=== PATIENT | female | born 1960 | race Hispanic/Latino ===

== ENCOUNTER 2018-03-22 23:40 | Observation (INO) | payer BC ==
--- NOTE | 2018-03-23 00:47 | ED PDOC ---
Arrival/HPI - General Chief Complaint: High Blood Pressure Time Seen by Provider: 03/23/18 00:18 Historian: Patient - History of Present Illness Narrative History of Present Illness (Text): 03/23/18 00:47 58 year old female, with past medical history of hypertension, presents to the Emergency department complaining of high blood pressure and chest pressure for past few days. Patient denies any blood pressure medication but informs taking her mother's prescribed lisinopril 20mg with mild improvement to symptoms. Patient informs associated 1 episode of vomiting today prompting her to present to the Emergency department for medical evaluation. Patient denies any fevers, chills, headache, dizziness, shortness of breath, dyspnea on exertion, cough, abdominal pain, nausea, diarrhea, back pain, neck pain, or any other complaints. Time/Duration: < week Symptom Onset: Gradual Symptom Course: Unchanged Quality: Pressure Activities at Onset: Light Context: Home Past Medical History - Provider Review Nursing Documentation Reviewed: Yes - Cardiac Hx Cardiac Disorders: Yes Hx Hypertension: Yes - Psychiatric Hx Substance Use: No - Surgical History Hx Section: Yes Family/Social History - Physician Review Nursing Documentation Reviewed: Yes Family/Social History: No Known Family HX Smoking Status: Never Smoked Hx Alcohol Use: Yes Frequency of alcohol use: Socially Hx Substance Use: No Allergies/Home Meds Allergies/Adverse Reactions: Allergies codeine Adverse Reaction (Verified 03/23/18 00:30) DIZZINESS Review of Systems - Physician Review All systems were reviewed & negative as marked: Yes - Review of Systems Constitutional: absent: Fevers Respiratory: absent: SOB, Cough Cardiovascular: Chest Pain. absent: DIOR Gastrointestinal: Vomiting. absent: Abdominal Pain, Diarrhea, Nausea Musculoskeletal: absent: Back Pain, Neck Pain Neurological: absent: Headache, Dizziness Physical Exam Vital Signs Reviewed: Yes Vital Signs Temp Pulse Resp BP Pulse Ox 03/23/18 03:14 76 18 152/93 H 96 03/23/18 00:26 98.2 F 85 18 158/88 H 99 Temperature: Afebrile Blood Pressure: Normal Pulse: Regular Respiratory Rate: Normal Appearance: Positive for: Well-Appearing, Non-Toxic, Comfortable Pain Distress: None Mental Status: Positive for: Alert and Oriented X 3 - Systems Exam Head: Present: Atraumatic, Normocephalic Pupils: Present: PERRL Extroacular Muscles: Present: EOMI Conjunctiva: Present: Normal Mouth: Present: Moist Mucous Membranes Neck: Present: Normal Range of Motion Respiratory/Chest: Present: Clear to Auscultation, Good Air Exchange. No: Respiratory Distress, Accessory Muscle Use Cardiovascular: Present: Regular Rate and Rhythm, Normal S1, S2. No: Murmurs Abdomen: No: Tenderness, Distention, Peritoneal Signs Back: Present: Normal Inspection Upper Extremity: Present: Normal Inspection. No: Cyanosis, Edema Lower Extremity: Present: Normal Inspection. No: Edema Neurological: Present: GCS=15, CN II-XII Intact, Speech Normal Skin: Present: Warm, Dry, Normal Color. No: Rashes Psychiatric: Present: Alert, Oriented x 3, Normal Insight, Normal Concentration Medical Decision Making ED Course and Treatment: 03/23/18 00:51 Impression: 58 year old female presents to the Emergency department complaining of chest pressure and high blood pressure. Plan: -- EKG -- Labs -- Chest X-ray -- Urinalysis -- Reassess and disposition Prior Visits: Notes and results from previous visits were reviewed. Progress Notes: 03/23/18 03:[address] Rockwell, who is aware and agrees with Emergency department management plan to admit patient to Telemetry for further observation. - Lab Interpretations Lab Results: 03/23/18 00:55 03/23/18 00:55 Lab Results 03/23/18 01:00: Urine Color Yellow, Urine Appearance Clear, Urine pH 6.5, Ur Specific [place] <= 1.005, Urine Protein Negative, Urine Glucose (UA) Negative, Urine Ketones Negative, Urine Blood Trace-lysed H, Urine Nitrate Negative, Urine Bilirubin Negative, Urine Urobilinogen 0.2, Ur Leukocyte Esterase Negative , Urine RBC 0 - 2, Urine WBC Negative, Ur Epithelial Cells 3 - 4, Urine Bacteria Occ 03/23/18 00:55: Sodium 144, Potassium 3.8, Chloride 106, Carbon Dioxide 24, Anion Gap 19, BUN 19, Creatinine 1.2, Est GFR ( Amer) 56, Est GFR (Non- Af Amer) 46, Random Glucose 121 H, Calcium 9.4, Magnesium 2.2, Total Bilirubin 1.6 H, AST 26, ALT 27, Alkaline Phosphatase 76, Lactate Dehydrogenase 511, Total Creatine Kinase 98, Troponin I < 0.01, Total Protein 8.1, Albumin 4.7, Globulin 3.3, Albumin/Globulin Ratio 1.4 03/23/18 00:55: PT 11.8, INR 1.03, APTT 33.1 03/23/18 00:55: WBC 10.3, RBC 4.37, Hgb 13.4, Hct 38.7, MCV 88.6, MCH 30.7, MCHC 34.6, RDW 13.6, Plt Count 240, MPV 9.9, Gran % 86.6 H, Lymph % (Auto) 10.2 L, Rook[place] % (Auto) 2.8, Eos % (Auto) 0.3 L, Baso % (Auto) 0.1, Gran # 8.94 H, Lymph # (Auto) 1.1 L, [place] # (Auto) 0.3, Eos # (Auto) 0.0, Baso # (Auto) 0.01 - RAD Interpretation Radiology Orders: 03/23/18 00:42 CHEST PORTABLE [RAD] Stat - EKG Interpretation EKG Interpretation (Text): 03/23/18 06:20 nsr rate 69 nssts changes - Medication Orders Current Medication Orders: Acetaminophen (Tylenol 325mg Tab) 650 mg PO Q4H PRN PRN Reason: Pain, Mild (1-3) Alprazolam (Xanax) 0.25 mg PO Q6H PRN; Protocol PRN Reason: Anxiety Stop: 03/30/18 13:19 Aspirin (Ecotrin) 81 mg PO DAILY [facility] Metoprolol Succinate (Toprol Xl) 25 mg PO DAILY [facility] Last Admin: 03/23/18 13:32 Dose: 25 mg MAR Pulse and Blood Pressure Document 03/23/18 13:32 (Rec: 03/23/18 13:32 [id number]) Pulse Pulse Rate (60-90) 84 Blood Pressure Blood Pressure (100/60-150/90) 116/71 Discontinued Medications Alprazolam (Xanax) 0.25 mg PO STAT STA PRN Reason: Protocol Stop: 03/23/18 13:06 Last Admin: 03/23/18 13:28 Dose: Not Given Non-Admin Reason: Patient Refused Aspirin (Ecotrin) 325 mg PO STAT STA Stop: 03/23/18 03:17 Last Admin: 03/23/18 03:26 Dose: 325 mg Metoprolol Succinate (Toprol Xl) 25 mg PO BRK PREETI Last Admin: 03/23/18 13:33 Dose: Nitroglycerin (Nitro-Bid 2% Oint) 1 ea TOP ONCE STA Stop: 03/23/18 03:17 Last Admin: 03/23/18 03:26 Dose: 1 ea - Scribe Statement The provider has reviewed the documentation as recorded by the Scribe Armand Salter. All medical record entries made by the Scribe were at my direction and personally dictated by me. I have reviewed the chart and agree that the record accurately reflects my personal performance of the history, physical exam, medical decision making, and the department course for this patient. I have also personally directed, reviewed, and agree with the discharge instructions and disposition. Disposition/Present on Arrival - Present on Arrival Any Indicators Present on Arrival: No History of DVT/PE: No History of Uncontrolled Diabetes: No Urinary Catheter: No History of Decub. Ulcer: No History Surgical Site Infection Following: None - Disposition Have Diagnosis and Disposition been Completed?: Yes Diagnosis: Chest pain Disposition: HOSPITALIZED Disposition Time: 03:30 Condition: GOOD
[2018-03-23 01:38] LABS: BASO # 0.01 K/mm3 (0.0-2.0); BASO % 0.1 % (0.0-3.0); EOS % 0.3 % (1.5-5.0); GRAN # 8.94 (1.4-6.5); GRAN % 86.6 % (50.0-68.0); HEMOGLOBIN 13.4 g/dL (12.0-16.0); LYMPH # 1.1 (1.2-3.4); LYMPH % 10.2 % (22.0-35.0); MEAN CELL VOLUME 88.6 fl (80.0-105.0); MEAN CORPUSCULAR HEMOGLOBIN 30.7 pg (25.0-35.0); MEAN CORPUSCULAR HGB CONC 34.6 g/dl (31.0-37.0); MEAN PLATELET VOLUME 9.9 fl (7.0-11.0); MONO # 0.3 (0.1-0.6); MONO % 2.8 % (1.0-6.0); RBC 4.37 10^6/uL (3.5-6.1); RED CELL DISTRIBUTION WIDTH 13.6 % (11.5-14.5); WHITE BLOOD COUNT 10.3 10^3/ul (4.5-11.0)
[2018-03-23 01:43] LABS: PH,URINE 6.5 (4.7-8.0); URINE BILIRUBIN NEGATIVE (NEGATIVE); URINE BLOOD TRACE-LYSED (NEGATIVE); URINE GLUCOSE (UA) NEGATIVE (NEGATIVE); URINE LEUKOCYTE ESTERASE NEGATIVE Leu/uL (NEGATIVE); URINE PROTEIN NEGATIVE mg/dL (<30 mg/dL); URINE UROBILINOGEN 0.2 E.U./dL (<1 E.U./dL)
[2018-03-23 01:49] LABS: URINE APPEARANCE CLEAR (CLEAR); URINE COLOR YELLOW (YELLOW)
[2018-03-23 01:50] LABS: INR 1.03; PARTIAL THROMBOPLASTIN TIME 33.1 Seconds (25.1-36.5); PROTHROMBIN TIME 11.8 SECONDS (9.4-12.5)
[2018-03-23 01:56] LABS: ALB/GLOB RATIO 1.4 (1.1-1.8); ALBUMIN 4.7 g/dL (3.0-4.8); ALT/SGPT 27 U/L (7-56); AST/SGOT 26 U/L (14-36); BLOOD UREA NITROGEN 19 mg/dL (7-21); CALCIUM 9.4 mg/dL (8.4-10.5); GFR NON-AFRICAN AMERICAN 46
[2018-03-23 01:58] LABS: URINE RBC 0 - 2 /hpf (0-2); URINE WBC NEGATIVE /hpf (0-6)
[2018-03-23 01:59] LABS: URINE BACTERIA OCC (NEG)
[2018-03-23 02:06] LABS: TROPONIN I < 0.01 ng/mL
[2018-03-23] MEDS ORDERED: Aspirin 325 mg EC Tablets PO STA (03:16)
[2018-03-23] MEDS ORDERED: Nitroglycerin 2% Ointment Foilpak UD TOP STA (03:16)
[2018-03-23 04:39] VITALS: BMI 27.4
[2018-03-23 06:28] VITALS: O2SAT 97
--- NOTE | 2018-03-23 10:09 | RAD ---
Date of service: 03/23/2018 HISTORY: cp COMPARISON: No prior. FINDINGS: LUNGS: No active pulmonary disease. PLEURA: No significant pleural effusion identified, no pneumothorax apparent. CARDIOVASCULAR: Normal. OSSEOUS STRUCTURES: No significant abnormalities. VISUALIZED UPPER ABDOMEN: Normal. OTHER FINDINGS: None. IMPRESSION: No active disease.
--- NOTE | 2018-03-23 12:00 | CARD ---
APPROVED REPORT Date of service: 03/23/2018 EKG Measurement Heart [id number] <Conclusion> Normal sinus rhythm NSSTW changes Mildly prolonged QTc
[2018-03-23] MEDS ORDERED: Metoprolol Succinate 25 mg XL Tab PO SCH ×2 (13:15)
[2018-03-23 18:53] VITALS: BP 116/76; RESP 18; TEMP 98.3
[2018-03-23 19:01] VITALS: PULSE 94
--- NOTE | 2018-03-23 22:05 | CON ---
Copied To: Froylan Sarmiento MD Attending MD: Froylan Sarmiento MD DATE: 03/23/2018 LOCATION: The patient in room 261, bed 1. REASON FOR CONSULTATION: Hypertension, chest discomfort. HISTORY OF PRESENT ILLNESS: A 58-year-old female. She says about 1 year ago she realized that she has high blood pressure. She uses a blood pressure machine at home and usually blood pressure 140/80, but yesterday she has an anxiety type of attack and with that she started feeling headache in the posterior part of the head and also slight chest discomfort and at that time, she took the blood pressure, it was 170/95. Usually it is below 140/80 at home and sometimes she says she took some magnesium pill and blood pressure went further down. Only yesterday, she used the lisinopril of her mother who is also hypertensive and takes lisinopril. She took 20 mg, which she never took before. Only one time yesterday she took it. The patient denies any history of exertional chest pain. Denies any history of diabetes, asthma, emphysema. PAST MEDICAL HISTORY: Past history positive for hypertension since 1 year. She said each time she was told she had rheumatic fever. PERSONAL HISTORY: Denies smoking. Drinks only socially. FAMILY HISTORY: Mother has high blood pressure. MEDICATIONS AT HOME: The patient denies taking any medications at home except yesterday when she had anxiety attack and blood pressure was elevated, she took lisinopril 20 from her mother's bottle. REVIEW OF SYSTEMS: All the systems reviewed, positives mentioned in the history, others were negative. PHYSICAL EXAMINATION: VITAL SIGNS: Blood pressure 158/88 initially at time of admission, now blood pressure 116/71; respirations 20; pulse 82; temperature 99.2. HEENT: Head is normocephalic. Eyes: Pupils normal. Conjunctivae normal. Nose and throat normal. NECK: JVP low. Carotids equal. THORAX: AP diameter normal. LUNGS: Clear. CARDIOVASCULAR: S1 and S2. No rub. No gallop. No click. No murmurs. ABDOMEN: Soft. No tenderness. No organomegaly. EXTREMITIES: No clubbing. No cyanosis. LABORATORY DATA: WBC 10.3, hemoglobin 13.4, hematocrit 38.7, platelets 240. Sodium 144, potassium 3.8, BUN 19, creatinine 1.2, random glucose 121, total bilirubin 1.6, AST 26, ALT 27, troponin is less than 0.01. Total protein, albumin normal. Chest x-ray clear. EKG, regular sinus rhythm. T inversion in V1 to V3. DIAGNOSES: Hypertension, anxiety attacks, chest pain, palpitations off and on. PLAN: We will give Lopressor 12.5 p.o. b.i.d. and we will give Xanax p.r.n. Ecotrin 81 mg daily. We will check fasting blood sugar, lipid profile, TSH. The patient will do stress test as outpatient and we will follow with you. Froylan Sarmiento MD
--- NOTE | 2018-03-24 04:51 | HP ---
Copied To: Mary Rockwell MD Attending MD: Mary Rockwell MD HISTORY OF PRESENT ILLNESS: The patient is 58 years old who stated that she was not feeling well yesterday, she had episode of chest pain radiated to left shoulder. She was having cough, feeling anxious and having palpitation. So she was concerned that she is having heart attack so she came to emergency room for further evaluation. Denies any fever or chills. No shortness of breath. No hemoptysis. No hematemesis. She did have feeling of nauseous and vomited once at home. By the time I saw patient she is feeling fine, no complaint of nausea, vomiting, fever, chills and she wants to go home. She states she felt very anxious last night. She had similar episode in the remote past. PAST MEDICAL HISTORY: Significant for; 1. Hypertension. 2. History of arrhythmia but not on any medication. ALLERGIES: PATIENT IS ALLERGIC TO CODEINE. MEDICATIONS: At home, she is on aspirin 81 daily, metoprolol. SOCIAL HISTORY: Denies smoking, drinking or alcohol use. Socially drinks only here and there on libertarian. PHYSICAL EXAMINATION: GENERAL: She is awake, alert, oriented, communicative. VITAL SIGNS: She is afebrile, pulse 82, respirations 20, blood pressure 116/71. LUNGS: Bilateral good airflow. No rhonchi or crackle. HEART: S1, S2 audible. ABDOMEN: Soft, nontender. No rebound. No guarding. NEUROLOGICAL: She is awake, alert, oriented, communicative. LABORATORY EXAM: WBC 10.3, hemoglobin 13, hematocrit 38, platelet of 240. PT 11.8. INR 1.03. Chemistry: Sodium 144, potassium 3.8, chloride 106, CO2 of 24, BUN 19, creatinine 1.2. Blood sugar 121. Total bili 1.6. LFTs are within normal limits. Urinalysis is unremarkable. ASSESSMENT: 1. Noncardiac chest pain. 2. Anxiety disorder. 3. hypertension. PLAN: Patient was given Xanax, which she does not want to take. She was offered metoprolol and aspirin, but patient would rather have stress test done that has been scheduled as outpatient. She will follow up with Dr. Sarmiento to have stress test done as outpatient and she will be discharged home today. Mary Rockwell MD
== END 2018-03-23 19:28 | disposition home or self-care (01) ==
LOC: ED 23:40 → ERH 03-23 03:10 → 2RNO 03-23 04:12
PROVIDERS: ADMIT Internal Medicine; ATTEND Internal Medicine
DX: R07.89 Other chest pain (principal); F41.1 Generalized anxiety disorder; I10 Essential (primary) hypertension; R00.2 Palpitations; Z88.5 Allergy status to narcotic agent
CPT/HCPCS: 71045; 80053; 81001; 82550; 83615; 83735; 84484; 85025; 85610; 85730; 93005; 99285; G0378